=== PATIENT | female | born 1975 | race Two or more races ===

== ENCOUNTER 2023-07-18 09:30 | Emergency (ER) | payer MEDICAID, OTHER ==
[~2023-07-18] VITALS: Ht 160 cm; Wt 70.0 kg
[2023-07-18] MEDS ORDERED: MECL1TAB42 PO (11:03)
[2023-07-18 11:32] LABS: Urine Bacteria NONE SEEN /hpf (None Seen); Urine Blood 1+ /uL (Negative); Urine Clarity Clear (Clear); Urine Color Yellow (Yellow); Urine Protein, UAD Negative (Negative); Urine Specific Gravity 1.014 (1.001-1.035); Urine Urobilinogen Normal (Negative); Urine WBC 1 /hpf (0 - 5)
[2023-07-18] MEDS ORDERED: NITR-87 PO (11:43)
[2023-07-18 11:56] VITALS: BP 104/65; PULSE 67; RESP 16; TEMP 98.1; O2SAT 96
== END 2023-07-18 11:59 | disposition home or self-care (01) ==
LOC: ER 09:30
DX: H81.90 Unspecified disorder of vestibular function, unspecified ear (principal); N39.0 Urinary tract infection, site not specified
CPT/HCPCS: 70450; 81001